=== PATIENT | female | born 1930 | race Caucasian/White ===

== ENCOUNTER 2018-07-14 14:17 | Emergency (ER) | payer MEDICARE, OTHER ==
[2018-07-14 15:35] VITALS: BP 180/86
--- NOTE | 2018-07-14 15:37 | UC ---
Elbow Pain - HPI Summary HPI Summary: The patient is an 87-year-old female that presents here with painless swelling overlying her left elbow. 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 sHe is on no blood thinners. She denies any falls. She denies any limited range of motion to her left elbow. - History of Current Complaint Chief Complaint: UCUpperExtremity Stated Complaint: LEFT ELBOW CONCERN Time Seen by Provider: 07/14/18 15:36 Hx Obtained From: Patient Onset/Duration: Hours Severity Initially: Mild Severity Currently: None Pain Intensity: 0 Pain Scale Used: 0-10 Numeric Location Of Pain: Is Diffuse Aggravating Factor(s): Other - notices it when she leans on it Alleviating Factor(s): Rest Associated Signs And Symptoms: Positive: Swelling Body - Head: 1 - fluid filled olecranon bursa/no ecchymosis or warmth - Allergies/Home Medications Allergies/Adverse Reactions: Allergies Allergy/AdvReac Type Severity Reaction Status Date / Time cefazolin [From Kefzol] Allergy Rash Verified 07/14/18 15:36 Home Medications: Home Medications Aspirin [Adult Aspirin] 81 mg PO DAILY 07/14/18 [History Confirmed 07/14/18] Atorvastatin* [Lipitor 80 MG*] 80 mg PO DAILY 07/14/18 [History Confirmed ] Calcium Carb/Vitamin D3/Vit K1 [Calcium + D Soft Chewable Tab] 1 each PO DAILY 07/14/18 [History Confirmed 07/14/18] Carvedilol [Coreg] 6.25 mg PO DAILY 07/14/18 [History Confirmed 07/14/18] Cholecalciferol (Vitamin D3) [Vitamin D3] 2,000 unit PO DAILY 07/14/18 [History Confirmed 07/14/18] Clopidogrel Bisulfate [Plavix] 75 mg PO DAILY 07/14/18 [History Confirmed ] Fluticasone NASAL SPRAY 50MCG* [Flonase NASAL SPRAY 50MCG*] 1 spray BOTH NARES DAILY PRN 07/14/18 [History Confirmed 07/14/18] Furosemide [Lasix] 20 mg PO DAILY 07/14/18 [History Confirmed 07/14/18] Levothyroxine TAB* [Synthroid 125 MCG TAB*] 125 mcg PO DAILY 07/14/18 [History Confirmed 07/14/18] Nitroglycerin 0.4 mg SL SEE INSTRUCTIONS PRN 07/14/18 [History Confirmed ] Olmesartan Medoxomil [Benicar] 10 mg PO DAILY 07/14/18 [History Confirmed ] See Med List 07/14/18 [History] Sitagliptin Phosphate [Januvia] 100 mg PO DAILY 07/14/18 [History Confirmed ] PMH/Surg Hx/FS Hx/Imm Hx - Surgical History Surgical History: Yes Surgery Procedure, Year, and Place: HEART STENT 09/29/07. HAMMER TOE SURGERY 2014 - Social History Alcohol Use: Occasionally Substance Use Type: None Smoking Status (MU): Former Smoker When Did the Patient Quit Smoking/Using Tobacco: 30+ Review of Systems All Other Systems Reviewed And Are Negative: Yes Constitutional: Positive: Negative Skin: Positive: Negative Eyes: Positive: Negative ENT: Positive: Negative Respiratory: Positive: Negative Cardiovascular: Positive: Negative Gastrointestinal: Positive: Negative Genitourinary: Positive: Negative Motor: Positive: Negative Neurovascular: Positive: Negative Musculoskeletal: Positive: Negative Neurological: Positive: Negative Psychological: Positive: Negative Physical Exam Triage Information Reviewed: Yes Appearance: Well-Appearing, No Pain Distress, Well-Nourished Vital Signs: Initial Vital Signs Temp 99.2 F 07/14/18 15:23 Pulse 95 07/14/18 15:23 Resp 22 07/14/18 15:23 BP 180/86 07/14/18 15:23 Pulse Ox 95 07/14/18 15:23 Eyes: Positive: Conjunctiva Clear ENT: Negative: Hearing grossly normal, Nasal congestion, Nasal drainage, Trismus , Muffled voice, Hoarse voice Neck: Positive: Supple Respiratory: Positive: Lungs clear, Normal breath sounds, No respiratory distress, No accessory muscle use Cardiovascular: Positive: RRR Musculoskeletal: Positive: Other: - see image Neurological: Positive: Alert Skin Exam: Normal Elbow Pain Course/Dx - Differential Dx/Diagnosis Provider Diagnosis: Traumatic hematoma of left elbow Discharge - Sign-Out/Discharge Documenting (check all that apply): Patient Departure All imaging exams completed and their final reports reviewed: No Studies - Discharge Plan Condition: Stable Disposition: HOME Patient Education Materials: Hematoma (ED) Referrals: Alexsander Santiago MD [Primary Care Provider] - 5 Days Additional Instructions: I think the fluid you are feeling in your left elbow is due to trivial trauma causing bleeding (hematoma) in left olecranon bursa If it becomes red or hot please return Omar wrap (remove at bedtime) ice - Billing Disposition and Condition Condition: STABLE Disposition: Home
== END 2018-07-14 16:11 | disposition home or self-care (01) ==
LOC: UCCORT 14:17
DX: S50.02XA Contusion of left elbow, initial encounter (principal); Z88.1 Allergy status to other antibiotic agents; Z79.82 Long term (current) use of aspirin; Z95.5 Presence of coronary angioplasty implant and graft; Z79.01 Long term (current) use of anticoagulants; Z87.891 Personal history of nicotine dependence; X58.XXXA Exposure to other specified factors, initial encounter; Y92.9 Unspecified place or not applicable
CPT/HCPCS: 99211; G0463